=== PATIENT | male | born 1990 | race Caucasian/White ===

== ENCOUNTER 2017-03-20 09:02 | Emergency (ER) | payer OTHER ==
[~2017-03-20] VITALS: Ht 185.4 cm; Wt 90.0 kg
[~2017-03-20 09:02] MED LIST: CIPROFLOXACN500 MG PO; DOXYCYC MONO100 M1 PO; IBUPROFEN600 MG PO; METRONIDAZOL500 MG PO; NO HOME MEDS; ZITHROMAX500 MG PO
[2017-03-20] MEDS ORDERED: OFLOXACIN0.3 % OS (09:47)
[2017-03-20 10:00] VITALS: BP 120/79
== END 2017-03-20 10:00 | disposition home or self-care (01) | DRG 125 ==
LOC: ED 09:02
DX: H57.12 Ocular pain, left eye (principal)

== ENCOUNTER 2018-05-30 11:17 | Emergency (ER) | payer SELFPAY ==
[~2018-05-30] VITALS: Ht 185.4 cm; Wt 95.0 kg
[~2018-05-30 11:17] MED LIST changes: +OFLOXACIN0.3 % OS
[2018-05-30] MEDS ORDERED: TORADOL PO (13:25)
[2018-05-30 13:32] VITALS: BP 126/89
== END 2018-05-30 13:32 | disposition home or self-care (01) | DRG 563 ==
LOC: ED 11:17
DX: S39.011A Strain of muscle, fascia and tendon of abdomen, initial encounter (principal); X50.0XXA Overexertion from strenuous movement or load, initial encounter; Y93.89 Activity, other specified; Y92.89 Other specified places as the place of occurrence of the external cause